=== PATIENT | male | born 2005 | race Two or more races ===

== ENCOUNTER 2025-05-02 18:38 | Emergency (ER) | payer BC, OTHER ==
[~2025-05-02] VITALS: Ht 177.8 cm; Wt 79.5 kg
[2025-05-02] MEDS ORDERED: HYDROcodone-ACET 5/325MG TAB PO ONE (19:00)
[2025-05-02 19:25] VITALS: TEMP 98
[2025-05-02] MEDS: MORPHINE SULFATE INJ 2 MG/ml SYRG IM ONE (19:27)
[2025-05-02] MEDS: MORPHINE SULFATE 4 MG/ML SYR/VIAL ONE (19:28)
[2025-05-02] MEDS ORDERED: IBUP-1456 PO (19:43)
--- NOTE | 2025-05-02 19:43 | ED.PDOC ---
Back pain HPI HPI Comments PT PRESENTED TO ED FOR RIGHT SHOULDER PAIN S/P "ROUGH GESTURE" 1 (+) RIGHT SHOULDER DEFORMITY NOTED. (+) NUMBNESS/TINGLING. [facility]-15, ALL VSS. + CSM Chief Complaint: Upper Extremity Time Seen by MD: 18:52 Reviewed Notes: Nurses Notes, Medications, Allergies Allergies: Coded Allergies: No Known Drug Allergy (Verified Allergy, Unknown, 05/02/25) Home Meds Active Scripts Ibuprofen (Ibuprofen) 800 Mg Tab, 800 MG PO Q8HP PRN for 6 Days, #18 TAB Prov:SILVA BUSTOS [employer] SCI[employer]IST 05/02/25 Mode of Arrival: Ambulatory Past Medical History PAST MEDICAL HISTORY: Denies Surgical History: Denies all surgeries Family History Family History: Unknown Social History Smoker: Non-Smoker Alcohol: Denies ETOH Use Drugs: Denies Drug Use All Other Systems: Reviewed and Negative (see hpi) Physical Exam General Appearance: No Apparent Distress, Normal HEENT: Pharynx Normal Neck: Full Range of Motion, Non-Tender Respiratory: Accessory Muscle Use, Chest Non-Tender, Lungs Clear, No Respiratory Distress, Normal Breath Sounds Cardiovascular: No Murmur, Normal Peripheral Pulses, Regular Rate/Rhythm Breast Exam: Deferred Gastrointestinal: Non Tender, Soft Genitalia: Deferred Pelvic: Deferred Rectal: Deferred Extremities: Normal capillary refill Musculoskeletal : Location: Right Extremity Location: Shoulder (severe pain with limited range of motion. appears to be ant dislocated ) Apperance: Normal Neurologic: Alert, No Motor Deficits, Normal Affect, Normal Mood, No Sensory Deficits Cerebellar Function: Normal Reflexes: NOT DONE Skin: Dry, Normal Color, Warm Lymphatic: No Adenopathy Was a procedure done? Was a procedure done?: Yes Sedation Sedation?: No Informed consent obtained: Yes Reduction Indication: Dislocation (right shoulder anterior dislocation ) Sedation: Other (morphine 2 MG IM) Intra-articular anesthetic yonatan: No Post-reduction x-ray show: Reduction, Good Alignment Informed consent obtained: Yes Risks/benefits/alt described: Yes Notes pt tolerated well Back Pain Differential Dx Differential Diagnosis: Fracture, Musculoskeletal Pain X-Ray, Labs, Meds, VS Vital Signs Date Time Temp Pulse Resp B/P (MAP) Pulse Ox O2 Delivery O2 Flow Rate FiO2 05/02/25 20:00 76 16 129/88 (102) 99 05/02/25 20:00 76 16 129/88 05/02/25 19:27 89 22 142/85 05/02/25 19:25 98.0 89 22 142/85 (104) 100 98.0 05/02/25 19:25 Room Air* 0 21 05/02/25 18:48 97.4 92 18 145/106 98 97.4 Current Medications Medications (Trade) Dose Ordered Sig/Mer Route Start Time Stop Time Status Last Admin Morphine Sulfate 2 mg ONCE ONCE IM 05/02/25 19:15 05/02/25 19:16 DC 05/02/25 19:27 X-Ray, Labs, Meds, VS Comment CLINICAL INDICATION: right shoulder reslocation TECHNIQUE: 2 radiographic views of the right shoulder were obtained. COMPARISON: None FINDINGS/IMPRESSION: There is interval closed reduction of the dislocated right shoulder with the shoulder in anatomic alignment. No evidence of acute traumatic fractures. Radiopaque density partially overlying the scapula which appears to be external to the patient when correlated with prior imaging. Post-Reduction X-ray shows no acute fractures dislocations or osseous lesions. Patient given morphine 2 mg im for the pain. prior to reduction. Reports improvement in symptoms. Placed in sling, advised on RICE. SCRIPT TRIAL OF ANTI-INFLAMMATORY. Advised to follow up with her PCP in 2-3 days if no improvement. Consider repeat x-ray or MRI if symptoms persist. ER return precautions given patient indicates understanding and agrees with discharge plan of care. Images Reviewed?: Images reviewed and evaluated by me Time of 1ST Reevaluation: 18:52 Reevaluation 1ST: Unchanged Time of 2ND Reevaluation: 19:38 Reevaluation 2ND: Improved Patient Education/Counseling: Diagnosis, Treatment, Need For Follow Up Family Education/Counseling: Diagnosis, Treatment SEPSIS Sepsis Screen Date sepsis recognized/suspect: May 02, 2025 Time Sepsis recognized/suspect: 1849 Recent Procedure: No On Antibiotic Therapy: No Respiratory Rate >20: No Heart Rate >90: No Temp<36 C (96.8 F) or >38.3 C: No SBP <90 or MAP <65 mmHG: No New Acute Mental Status Change: No Is the patient on CPAP, BIPAP,: No Physician Orders R Shoulder 2+ View Xray (05/02/25 18:53) R Shoulder 1v Xray (05/02/25 19:38) Vital Signs Date Time Temp Pulse Resp B/P (MAP) Pulse Ox O2 Delivery O2 Flow Rate FiO2 05/02/25 20:00 76 16 129/88 (102) 99 05/02/25 20:00 76 16 129/88 05/02/25 19:27 89 22 142/85 05/02/25 19:25 98.0 89 22 142/85 (104) 100 98.0 05/02/25 19:25 Room Air* 0 21 05/02/25 18:48 97.4 92 18 145/106 98 97.4 Medications Medications Dose Ordered Sig/Mer Route Start Time Stop Time Status Last Admin Dose Admin Morphine Sulfate 2 mg ONCE ONCE IM 05/02/25 19:15 05/02/25 19:16 DC 05/02/25 19:27 Departure 1 Departure Time of Disposition: 19:42 Impression: Primary Impression: Anterior shoulder dislocation Qualified Codes: S43.014A - Anterior dislocation of right humerus, initial encounter Disposition: HOME / SELF CARE / HOMELESS Condition: Stable e-Prescriptions Ibuprofen (Ibuprofen) 800 Mg Tab 800 MG PO Q8HP PRN for 6 Days, #18 TAB Prov: SILVA BUSTOS 05/02/25 Discharged With: Significant Other Critical Care Note Critical Care Time?: No Stability Stability form required: No SILVA BUSTOS May 02, 2025 19:43
[2025-05-02 20:00] VITALS: BP 129/88; PULSE 76; RESP 16; O2SAT 99
--- NOTE | 2025-05-02 20:22 | DVH ---
CLINICAL INDICATION: right shoulder reslocation TECHNIQUE: 2 radiographic views of the right shoulder were obtained. COMPARISON: None FINDINGS/IMPRESSION: There is interval closed reduction of the dislocated right shoulder with the shoulder in anatomic alignment. No evidence of acute traumatic fractures. Radiopaque density partially overlying the scapula which appears to be external to the patient when correlated with prior imaging.
--- NOTE | 2025-05-02 21:07 | DVH ---
EXAM: XY R SHOULDER 2+ VIEW XRAY REASON FOR EXAM: SHOULDER DEFORMITY TECHNIQUE: AP and Y-views of the right shoulder are submitted for review. COMPARISON: XY R SHOULDER 1V XRAY on DOS: 05/02/25 FINDINGS: There is anterior inferior dislocation of the humeral head with respect to the glenoid fossa. No definite fracture is identified. There is no widening of the acromioclavicular joint. The soft tissues are grossly unremarkable. IMPRESSION: Anterior inferior dislocation of the humeral head with respect to the glenoid fossa.
== END 2025-05-02 20:05 | disposition home or self-care (01) ==
LOC: ER 18:38
DX: S43.014A Anterior dislocation of right humerus, initial encounter (principal); X58.XXXA Exposure to other specified factors, initial encounter; Y93.89 Activity, other specified; Y92.89 Other specified places as the place of occurrence of the external cause; Y99.8 Other external cause status
CPT/HCPCS: 23650; 73020; 73030; 96372; 99284; J2270